=== PATIENT | male | born 1980 ===

== ENCOUNTER 2018-02-25 11:07 | Observation (INO) | payer OTHER ==
[2018-02-25 11:07] VITALS: BMI 24.6
[2018-02-25 12:00] LABS: BASO % 1.1 % (0.0-2.0); EOS # 0.3 K/uL (0.0-0.7); EOS % 8.5 % (0.0-4.0); HEMOGLOBIN 14.6 g/dL (12.0-18.0); LYMPH # 1.9 K/uL (1.0-4.3); LYMPH % 50.4 % (20.0-40.0); MEAN CELL VOLUME 79.7 fL (80.0-94.0); MEAN CORPUSCULAR HGB CONC 33.9 g/dL (33.0-37.0); MEAN PLATELET VOLUME 9.8 fL (7.2-11.7); MONO # 0.4 K/uL (0.0-0.8); MONO % 9.6 % (0.0-10.0); NEUT # 1.1 K/uL (1.8-7.0); NEUT % 30.4 % (50.0-75.0); NRBC % 0.1 % (0.0-2.0); RBC 5.4 Mil/uL (4.40-5.90); RED CELL DISTRIBUTION WIDTH 12.9 % (11.5-14.5); WHITE BLOOD COUNT 3.8 K/uL (4.8-10.8)
[2018-02-25 12:14] LABS: ALB/GLOB RATIO 1.7 (1.0-2.1); ALBUMIN 4.5 g/dL (3.5-5.0); ALT/SGPT 40 U/L (21-72); AST/SGOT 33 U/L (17-59); BLOOD UREA NITROGEN 17 mg/dL (9-20); GFR AFRICAN-AMERICAN > 60; GFR NON-AFRICAN AMERICAN > 60
[2018-02-25 12:23] LABS: B-TYPE NATRIURETIC PEPTIDE 37.7 pg/mL (0-450)
--- NOTE | 2018-02-25 12:55 | RAD ---
Date of service: 02/25/2018 PROCEDURE: CHEST RADIOGRAPH, 1 VIEW HISTORY: chest pain COMPARISON: None available. FINDINGS: LUNGS: Clear. PLEURA: No pneumothorax or pleural fluid seen. CARDIOVASCULAR: Normal. OSSEOUS STRUCTURES: No significant abnormalities. VISUALIZED UPPER ABDOMEN: Normal. OTHER FINDINGS: None. IMPRESSION: No active disease.
--- NOTE | 2018-02-25 14:03 | CP.PCM.CON ---
History of Present Illness - History of Present Illness History of Present Illness: I was asked to evaluate patient by Dr patten. Patient is a 37 year old male with no PMH who presents with chest pain. He describes a sharp central chest pain, associated with exertion. he developed left amr tingling and pain. Review of Systems - Constitutional Constitutional: absent: As Per HPI, Anorexia, Chills, Daytime Sleepiness, Excessive Sweating, Fatigue, Fever, Frequent Falls, Headache, Increased Appetite , Lethargy, Malaise, Night Sweats, Snoring, Sleep Apnea, Weight Gain, Weight Loss, Weakness, Other - EENT Eyes: absent: As Per HPI, Blind Spots, Blurred Vision, Change in Vision, Decreased Night Vision, Diplopia, Discharge, Dry Eye, Exophthalmos, Floaters, Irritation, Itchy Eyes, Loss of Peripheral Vision, Pain, Photophobia, Requires Corrective Lenses, Sees Flashes, Spots in Vision, Tunnel Vision, Other Visual Disturbances, Loss of Vision, Other Ears: absent: As Per HPI, Decreased Hearing, Ear Discharge, Ear Pain, Tinnitus, Abnormal Hearing, Disequilibrium, Dizziness, Other Nose/Mouth/Throat: absent: As Per HPI, Epistaxis, Nasal Congestion, Nasal Discharge, Nasal Obstruction, Nasal Trauma, Nose Pain, Post Nasal Drip, Sinus Pain, Sinus Pressure, Bleeding Gums, Change in Voice, Dental Pain, Dry Mouth, Dysphagia, Halitosis, Hoarsness, Lip Swelling, Mouth Lesions, Mouth Pain, Odynophagia, Sore Throat, Throat Swelling, Tongue Swelling, Facial Pain, Neck Pain, Neck Mass, Other - Cardiovascular Cardiovascular: Chest Pain - Respiratory Respiratory: Dyspnea - Gastrointestinal Gastrointestinal: absent: As Per HPI, Abdominal Pain, Belching, Bloating, Change in Bowel Habits, Change in Stool Character, Coffee Ground Emesis, Constipation, Cramping, Diarrhea, Dyspepsia, Dysphagia, Early Satiety, Excessive Flatus, Fecal Incontinence, Heartburn, Hematemesis, Hematochezia, Loose Stools, Melena, Nausea, Odynophagia, Temesmus, Vomiting, Other - Musculoskeletal Musculoskeletal: absent: As Per HPI, Abnormal Gait, Arthralgias, Atrophy, Back Pain, Deformity, Joint Swelling, Limited Range of Motion, Loss of Height, Muscle Cramps, Muscle Weakness, Myalgias, Neck Pain, Numbness, Radiating Pain into Limb, Stiffness, Tingling, Other - Integumentary Integumentary: absent: As Per HPI, Acne, Alopecia, Bleeding Lesions, Change in Hair, Change in Nails, Change in Pigmentation, Changing Lesions, Dry Skin, Erythema, Furuncle, Hirsutism, Lesions, New Lesions, Non-Healing Lesions, Photosensitivity, Pruritus, Rash, Skin Pain, Skin Ulcer, Sores, Striae, Swelling , Unusual Bruising, Wounds, Jaundice, Other - Neurological Neurological: absent: As Per HPI, Abnormal Gait, Abnormal Hearing, Abnormal Movements, Abnormal Speech, Behavioral Changes, Burning Sensations, Confusion, Convulsions, Disequilibrium, Dizziness, Numbness, Focal Weakness, Frequent Falls , Headaches, Lack of Coordination, Loss of Vision, Memory Loss, Paresthesias, Radicular Pain, Restless Legs, Sensory Deficit, Syncope, Tingling, Tremor, Vertigo, Weakness, Other Visual Disturbances, Other - Psychiatric Psychiatric: absent: As Per HPI, Abnormal Sleep Pattern, Anhedonia, Anxiety, Auditory Hallucinations, Behavioral Changes, Change in Appetite, Change in Libido, Confusion, Depression, Difficulty Concentrating, Hallucinations, Homicidal Ideation, Hopelessness, Irritability, Memory Loss, Mood Swings, Panic Attacks, Paranoia, Suicidal Ideation, Visual Hallucinations, Tactile Hallucinations, Other - Endocrine Endocrine: absent: As Per HPI, Change in Body Appearance, Change in Libido, Cold Intolorance, Deepening of Voice, Excessive Sweating, Fatigue, Flushing, Heat Intolorance, Increase in Ring/Shoe/Hat Size, Palpitations, Polydipsia, Polyphagia, Polyuria, Other - Hematologic/Lymphatic Hematologic: absent: As Per HPI, Easy Bleeding, Easy Bruising, Lymphadenopathy, Other Past Patient History - Infectious Disease Hx of Infectious Diseases: None - Past Social History Smoking Status: Never Smoked - RENAL Hx Kidney Stones: Yes - GENITOURINARY/GYNECOLOGICAL Hx Genitourinary Disorders: Yes Other/Comment: kidney stones - PSYCHIATRIC Hx Substance Use: No - SURGICAL HISTORY Hx Surgeries: No - ANESTHESIA Hx Anesthesia: No Meds Allergies/Adverse Reactions: Allergies Allergy/AdvReac Type Severity Reaction Status Date / Time No Known Allergies Allergy Verified 03/26/17 08:32 Physical Exam - Constitutional Appears: Non-toxic - Head Exam Head Exam: NORMAL INSPECTION - Eye Exam Eye Exam: Normal appearance - ENT Exam ENT Exam: Mucous Membranes Moist - Neck Exam Neck exam: Positive for: Full Rom - Respiratory Exam Respiratory Exam: NORMAL BREATHING PATTERN - Cardiovascular Exam Cardiovascular Exam: REGULAR RHYTHM - GI/Abdominal Exam GI & Abdominal Exam: Normal Bowel Sounds - Rectal Exam Rectal Exam: Deferred - Extremities Exam Extremities exam: Positive for: pedal edema - Back Exam Back exam: NORMAL INSPECTION - Neurological Exam Neurological exam: Alert, Oriented x3 - Psychiatric Exam Psychiatric exam: Normal Affect - Skin Skin Exam: Normal Color Results - Vital Signs Recent Vital Signs: Last Vital Signs Temp 98.1 F 02/25/18 11:22 Pulse 58 L 02/25/18 11:22 Resp 18 02/25/18 11:22 BP 125/71 02/25/18 11:22 Pulse Ox 97 02/25/18 11:22 - Labs Result Diagrams: 02/25/18 11:50 02/25/18 11:50 Labs: Laboratory Results - last 24 hr 02/25/18 02/25/18 11:50 11:50 WBC 3.8 L RBC 5.40 Hgb 14.6 Hct 43.1 MCV 79.7 L MCH 27.0 MCHC 33.9 RDW 12.9 Plt Count 165 MPV 9.8 Neut % (Auto) 30.4 L Lymph % (Auto) 50.4 H [place] % (Auto) 9.6 Eos % (Auto) 8.5 H Baso % (Auto) 1.1 Neut # (Auto) 1.1 L Lymph # (Auto) 1.9 [place] # (Auto) 0.4 Eos # (Auto) 0.3 Baso # (Auto) 0.0 Sodium 142 Potassium 4.2 Chloride 104 Carbon Dioxide 27 Anion Gap 14 BUN 17 Creatinine 1.1 Est GFR ( Amer) > 60 Est GFR (Non-Af Amer) > 60 Random Glucose 101 Calcium 9.0 Total Bilirubin 0.8 AST 33 ALT 40 Alkaline Phosphatase 75 Troponin I < 0.0120 NT-Pro-B Natriuret Pep 37.7 Total Protein 7.1 Albumin 4.5 Globulin 2.6 Albumin/Globulin Ratio 1.7 - EKG Data EKG Interpreted by: Myself EKG shows normal: Sinus rhythm Assessment & Plan (1) Chest pain Assessment and Plan: recommend troponin x 2. If troponin is negative will d/c home today and plan for outpatient stress test. Recommend ASA 81 mg daily. Status: Acute
[2018-02-25 14:20] LABS: BARBITURATES, UR NEGATIVE (NEGATIVE); BENZODIAZEPINES, UR NEGATIVE (NEGATIVE); OPIATES, UR NEGATIVE (NEGATIVE); PHENCYCLIDINE, UR NEGATIVE (NEGATIVE)
--- NOTE | 2018-02-25 14:34 | C.PDOC ---
History Of Present Illness 37 y/o male presents to the ER complaining of chest pain which has been present since yesterday. Patient states that the pain radiated to his left arm and he has associated SOB. Patient reports that he was seen by his PMD earlier today and he was sent to ER for evaluation. Time Seen by Provider: 02/25/18 11:40 Chief Complaint (Nursing): Chest Pain History Per: Patient History/Exam Limitations: no limitations Onset/Duration Of Symptoms: Days Current Symptoms Are (Timing): Still Present Severity: Moderate Past Medical History Reviewed: Historical Data, Nursing Documentation, Vital Signs Vital Signs: Last Vital Signs Temp 98.1 F 02/25/18 11:22 Pulse 58 L 02/25/18 11:22 Resp 18 02/25/18 11:22 BP 125/71 02/25/18 11:22 Pulse Ox 97 02/25/18 14:39 - Medical History PMH: Kidney Stones Surgical History: No Surg Hx Family History: States: No Known Family Hx - Social History Hx Alcohol Use: Yes Hx Substance Use: No Review Of Systems Except As Marked, All Systems Reviewed And Found Negative. Constitutional: Negative for: Fever, Chills Cardiovascular: Positive for: Chest Pain Respiratory: Positive for: Shortness of Breath Physical Exam - Physical Exam Appears: Non-toxic, No Acute Distress Skin: Normal Color, Warm, Dry Head: Atraumatic, Normacephalic Eye(s): bilateral: Normal Inspection Nose: Normal Oral Mucosa: Moist Neck: Supple Chest: Symmetrical Cardiovascular: Rhythm Regular Respiratory: Normal Breath Sounds, No Rales, No Rhonchi, No Wheezing Gastrointestinal/Abdominal: Normal Exam, Soft, No Tenderness, No Guarding, No Rebound Extremity: Normal ROM Neurological/Psych: Oriented x3, Normal Speech ED Course And Treatment - Laboratory Results Result Diagrams: 02/25/18 11:50 02/25/18 11:50 ECG: Interpreted By Me, Viewed By Me ECG Rhythm: Sinus Rhythm Interpretation Of ECG: NSR with normal intervals, normal axises, early repolarization, and no ST/ T wave abnormalities Rate From EC O2 Sat by Pulse Oximetry: 97 (RA) Pulse Ox Interpretation: Normal - Radiology CXR: Interpreted by Me, Viewed By Me CXR Interpretation: Yes: No Acute Disease Medical Decision Making Medical Decision Making: Plan: --Labs --EKG --CXR Updates: Case discussed with hospitalist, Dr. Sachi Loving. Patient will be admitted to Tele Obs. Dr. Charmaine Martinez will be on consult. - Scribe Statement The provider has reviewed the documentation as recorded by the Barney Echavarria Provider Attestation: All medical record entries made by the Scribe were at my direction and personally dictated by me. I have reviewed the chart and agree that the record accurately reflects my personal performance of the history, physical exam, medical decision making, and the department course for this patient. I have also personally directed, reviewed, and agree with the discharge instructions and disposition.
--- NOTE | 2018-02-25 15:35 | CP.PCM.HP ---
History of Present Illness - History of Present Illness History of Present Illness: CC "chest pain" HPI Patient is a 37 year old male with no past medical history of kidney stone who presents for evaluation of chest pain that started last night. He states that he thought it would resolve on its own, however states that his chest pain worsened at 8:30am this morning while he was at a meeting at work. This morning, his chest pain worsened in the middle of his chest associated with cramping in his left arm, palpitations and shortness of breath. He denies any pain in his left arm. He denies nausea, vomiting, diaphoresis. States his pain was a 9/10, initially, however currently is a 2/10. Currently he states he has no palpitations, shortness of breath. Patient is right handed, sleeps on his left side. He denies any aggravating or relieving factors. He was seen by PMD Dr. Gordon who instructed him to come to ED for evaluation. He denies fevers , chills, headache, dizziness, lightheadedness, changes in vision/hearing, cough , abdominal pain, nausea, vomiting, diarrhea, constipation, blood in stools, dysuria, urinary frequency, calf pain. He denies recent illness or sick contacts. He admits to weight gain of 20 lbs in 2 years, however state that it is likely due to his lifestyle and work schedule. States that he feels his appetite has decreased slightly. PMD: Dr. Gordon Code status: full code Health care proxy: Ekta , PMD: kidney stones (10 years) bilateral PSH: none Family hx: Mother has hx of hypertension, hyperlipidemia. Yolanda was diagnosed with cardiac issue at the age of 50 Social hx: denies tobacco use. Admits to drinking ETOH occasionally - once a month drinks 1-2 12oz cans of beer. Denies drug use. States he lives with . no recent stresors at home or work. 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 Present on Admission - Present on Admission Any Indicators Present on Admission: No Review of Systems - Constitutional Constitutional: absent: Chills, Excessive Sweating, Fever, Headache - EENT Eyes: absent: Blurred Vision, Change in Vision, Loss of Vision Ears: absent: Decreased Hearing, Dizziness Nose/Mouth/Throat: absent: Nasal Congestion, Lip Swelling, Sore Throat - Cardiovascular Cardiovascular: Chest Pain, Dyspnea, Lightheadedness, Palpitations. absent: Diaphoresis, Dyspnea on Exertion, Leg Edema - Respiratory Respiratory: Dyspnea. absent: Cough, Snoring, Pain on Inspiration, Chest Congestion - Gastrointestinal Gastrointestinal: absent: Abdominal Pain, Constipation, Diarrhea, Nausea, Vomiting - Genitourinary Genitourinary: Hx Renal/Bladder Calculi. absent: Difficulty Urinating, Dysuria , Flank Pain - Musculoskeletal Musculoskeletal: Back Pain (intermittently over the past year). absent: Abnormal Gait - Integumentary Integumentary: absent: Erythema, Rash, Skin Ulcer, Sores, Jaundice - Neurological Neurological: absent: Abnormal Movements, Dizziness, Numbness, Headaches, Tremor , Weakness - Psychiatric Psychiatric: absent: Anxiety, Depression Past Patient History - Infectious Disease Hx of Infectious Diseases: None - Past Social History Smoking Status: Never Smoked - RENAL Hx Kidney Stones: Yes - GENITOURINARY/GYNECOLOGICAL Hx Genitourinary Disorders: Yes Other/Comment: kidney stones - PSYCHIATRIC Hx Substance Use: No - SURGICAL HISTORY Hx Surgeries: No - ANESTHESIA Hx Anesthesia: No Meds Allergies/Adverse Reactions: Allergies Allergy/AdvReac Type Severity Reaction Status Date / Time No Known Allergies Allergy Verified 03/26/17 08:32 Physical Exam - Constitutional Appears: Well, No Acute Distress - Head Exam Head Exam: ATRAUMATIC Additional comments: 1.5 inch diameter circular mobile nontender nonerythematous mass to occiput - patient states he has noticed it over the past few months - Eye Exam Eye Exam: EOMI, PERRL. absent: Nystagmus, Scleral icterus - ENT Exam ENT Exam: Mucous Membranes Moist - Neck Exam Neck exam: Positive for: Full Rom. Negative for: Lymphadenopathy, Tenderness - Respiratory Exam Respiratory Exam: Clear to Auscultation Bilateral, NORMAL BREATHING PATTERN. absent: Accessory Muscle Use, Chest Wall Tenderness, Decreased Breath Sounds, Rales, Rhonchi, Wheezes, Stridor - Cardiovascular Exam Cardiovascular Exam: Bradycardia, REGULAR RHYTHM, +S1, +S2. absent: Tachycardia , Gallop, JVD, Rubs Additional comments: No reproducible tenderness on anterior chest wall - GI/Abdominal Exam GI & Abdominal Exam: Normal Bowel Sounds, Soft. absent: Distended, Firm, Guarding, Organomegaly, Rebound - Extremities Exam Extremities exam: Positive for: full ROM, normal capillary refill, pedal pulses present. Negative for: calf tenderness, pedal edema Additional comments: good capillary refill of upper and lower extremities - Back Exam Back exam: absent: CVA tenderness (L), CVA tenderness (R), rash noted Additional comments: Cafe au la[employer] lois on right lower back - Neurological Exam Neurological exam: Alert, CN II-XII Intact, Oriented x3 - Psychiatric Exam Psychiatric exam: Normal Affect, Normal Mood - Skin Skin Exam: Dry, Intact, Warm Additional comments: no rash noted. Cafe au lait lois on right lower back. Occipital scalp mass - 1.5 inches in diameter, mobile, nonerythematous, nontender. Results - Vital Signs Recent Vital Signs: Last Vital Signs Temp 98.1 F 02/25/18 11:22 Pulse 58 L 02/25/18 11:22 Resp 18 02/25/18 11:22 BP 125/71 02/25/18 11:22 Pulse Ox 97 02/25/18 14:41 - Labs Result Diagrams: 02/25/18 11:50 02/25/18 11:50 Labs: Laboratory Results - last 24 hr 02/25/18 02/25/18 02/25/18 11:50 11:50 11:50 WBC 3.8 L RBC 5.40 Hgb 14.6 Hct 43.1 MCV 79.7 L MCH 27.0 MCHC 33.9 RDW 12.9 Plt Count 165 MPV 9.8 Neut % (Auto) 30.4 L Lymph % (Auto) 50.4 H [place] % (Auto) 9.6 Eos % (Auto) 8.5 H Baso % (Auto) 1.1 Neut # (Auto) 1.1 L Lymph # (Auto) 1.9 [place] # (Auto) 0.4 Eos # (Auto) 0.3 Baso # (Auto) 0.0 Sodium 142 Potassium 4.2 Chloride 104 Carbon Dioxide 27 Anion Gap 14 BUN 17 Creatinine 1.1 Est GFR ( Amer) > 60 Est GFR (Non-Af Amer) > 60 Random Glucose 101 Calcium 9.0 Total Bilirubin 0.8 AST 33 ALT 40 Alkaline Phosphatase 75 Troponin I < 0.0120 NT-Pro-B Natriuret Pep 37.7 Total Protein 7.1 Albumin 4.5 Globulin 2.6 Albumin/Globulin Ratio 1.7 Urine Opiates Screen Negative Urine Methadone Screen Negative Ur Barbiturates Screen Negative Ur Phencyclidine Scrn Negative Ur Amphetamines Screen Negative U Benzodiazepines Scrn Negative U Oth Cocaine Metabols Negative U Cannabinoids Screen Negative Assessment & Plan (1) Atypical chest pain Status: Acute - Assessment and Plan (Free Text) Plan: Assessment/plan Atypical chest pain Observe Telemetry Troponins x2 EKGs x2 Initial EKG: NSR 50 CXR no active disease VS Temp 98.2 HR 60 BP 121/72 RR 20 Pulse ox 100% on RA Sociology Adj[employer] In[employer] Dr. Martinez consulted, help appreciated * Recommend outpatient follow up for stress test if troponins x3 negative ASA 81mg PO Urine drug screen: negative Occipital scalp mass Present for a few months, nontender Continue to monitor Recommend outpatient follow up with Dr. Gordon Prophylaxis DVT risk score of 0 SCDs No GI prophylaxis Heart healthy diet, 2g Na, low carb Disposition: If troponins x3 negative, may be discharged home for follow up with [employer]ology [employer] Instructor for outpatient stress test. Mason Hunter, TRAVIS Case discussed with Dr. Loving
[2018-02-26 04:59] VITALS: RESP 18
[2018-02-26 07:43] VITALS: BP 133/83; TEMP 97.7; O2SAT 100
--- NOTE | 2018-02-26 08:22 | CP.PCM.PCO ---
Physician Communication Note - Physician Communication Note Physician Communication Note: Please see above
[2018-02-26 08:33] VITALS: PULSE 44
[2018-02-26 09:34] LABS: BASO % 0.9 % (0.0-2.0); EOS # 0.3 K/uL (0.0-0.7); LYMPH # 1.5 K/uL (1.0-4.3); LYMPH % 44.9 % (20.0-40.0); MEAN CELL VOLUME 80.6 fL (80.0-94.0); MEAN CORPUSCULAR HEMOGLOBIN 26.8 pg (27.0-31.0); MEAN CORPUSCULAR HGB CONC 33.2 g/dL (33.0-37.0); MEAN PLATELET VOLUME 9.7 fL (7.2-11.7); MONO # 0.3 K/uL (0.0-0.8); MONO % 9.7 % (0.0-10.0); NEUT # 1.2 K/uL (1.8-7.0); NEUT % 35.5 % (50.0-75.0); NRBC % 0.1 % (0.0-2.0); RBC 5.58 Mil/uL (4.40-5.90); RED CELL DISTRIBUTION WIDTH 13.1 % (11.5-14.5); WHITE BLOOD COUNT 3.3 K/uL (4.8-10.8)
[2018-02-26 09:53] LABS: ALB/GLOB RATIO 1.5 (1.0-2.1); ALBUMIN 4.3 g/dL (3.5-5.0); ALT/SGPT 32 U/L (21-72); AST/SGOT 21 U/L (17-59); BLOOD UREA NITROGEN 20 mg/dL (9-20); CALCIUM 9.1 mg/dl (8.6-10.4); GFR AFRICAN-AMERICAN > 60; GFR NON-AFRICAN AMERICAN > 60
--- NOTE | 2018-02-26 10:16 | CP.PCM.DIS ---
<Barbara Almodovar P - Last Filed: 02/26/18 12:36> Provider - Provider Date of Admission: 02/25/18 13:08 Attending physician: Arron Loving MD Consults: Dr. Martinez, Cardiology. Time Spent in preparation of Discharge (in minutes): 45 Diagnosis - Discharge Diagnosis (1) Atypical chest pain Status: Acute (2) Scalp mass Status: Acute Hospital Course - Lab Results Lab Results: Most Recent Lab Values WBC 3.3 K/uL (4.8-10.8) L 02/26/18 09:17 RBC 5.58 Mil/uL (4.40-5.90) 02/26/18 09:17 Hgb 15.0 g/dL (12.0-18.0) 02/26/18 09:17 Hct 45.0 % (35.0-51.0) 02/26/18 09:17 MCV 80.6 fL (80.0-94.0) 02/26/18 09:17 MCH 26.8 pg (27.0-31.0) L 02/26/18 09:17 MCHC 33.2 g/dL (33.0-37.0) 02/26/18 09:17 RDW 13.1 % (11.5-14.5) 02/26/18 09:17 Plt Count 165 K/uL (130-400) 02/26/18 09:17 MPV 9.7 fL (7.2-11.7) 02/26/18 09:17 Neut % (Auto) 35.5 % (50.0-75.0) L 02/26/18 09:17 Lymph % (Auto) 44.9 % (20.0-40.0) H 02/26/18 09:17 [place] % (Auto) 9.7 % (0.0-10.0) 02/26/18 09:17 Eos % (Auto) 9.0 % (0.0-4.0) H 02/26/18 09:17 Baso % (Auto) 0.9 % (0.0-2.0) 02/26/18 09:17 Neut # (Auto) 1.2 K/uL (1.8-7.0) L 02/26/18 09:17 Lymph # (Auto) 1.5 K/uL (1.0-4.3) 02/26/18 09:17 [place] # (Auto) 0.3 K/uL (0.0-0.8) 02/26/18 09:17 Eos # (Auto) 0.3 K/uL (0.0-0.7) 02/26/18 09:17 Baso # (Auto) 0.0 K/uL (0.0-0.2) 02/26/18 09:17 Sodium 141 mmol/L (132-148) 02/26/18 09:17 Potassium 4.5 mmol/L (3.6-5.2) 02/26/18 09:17 Chloride 103 mmol/L (98-107) 02/26/18 09:17 Carbon Dioxide 27 mmol/L (22-30) 02/26/18 09:17 Anion Gap 16 (10-20) 02/26/18 09:17 BUN 20 mg/dL (9-20) 02/26/18 09:17 Creatinine 1.2 mg/dL (0.8-1.5) 02/26/18 09:17 Est GFR ( Amer) > 60 02/26/18 09:17 Est GFR (Non-Af Amer) > 60 02/26/18 09:17 Random Glucose 97 mg/dL (75-110) 02/26/18 09:17 Calcium 9.1 mg/dl (8.6-10.4) 02/26/18 09:17 Phosphorus 2.7 mg/dL (2.5-4.5) 02/26/18 09:17 Magnesium 1.8 mg/dL (1.6-2.3) 02/26/18 09:17 Total Bilirubin 0.5 mg/dL (0.2-1.3) 02/26/18 09:17 AST 21 U/L (17-59) 02/26/18 09:17 ALT 32 U/L (21-72) 02/26/18 09:17 Alkaline Phosphatase 71 U/L (38-126) 02/26/18 09:17 Troponin I < 0.0120 ng/mL (0.00-0.120) 02/26/18 00:19 NT-Pro-B Natriuret Pep 37.7 pg/mL (0-450) 02/25/18 11:50 Total Protein 7.2 g/dL (6.3-8.3) 02/26/18 09:17 Albumin 4.3 g/dL (3.5-5.0) 02/26/18 09:17 Globulin 2.9 gm/dL (2.2-3.9) 02/26/18 09:17 Albumin/Globulin Ratio 1.5 (1.0-2.1) 02/26/18 09:17 Urine Opiates Screen Negative (NEGATIVE) 02/25/18 11:50 Urine Methadone Screen Negative (NEGATIVE) 02/25/18 11:50 Ur Barbiturates Screen Negative (NEGATIVE) 02/25/18 11:50 Ur Phencyclidine Scrn Negative (NEGATIVE) 02/25/18 11:50 Ur Amphetamines Screen Negative (NEGATIVE) 02/25/18 11:50 U Benzodiazepines Scrn Negative (NEGATIVE) 02/25/18 11:50 U Oth Cocaine Metabols Negative (NEGATIVE) 02/25/18 11:50 U Cannabinoids Screen Negative (NEGATIVE) 02/25/18 11:50 - Hospital Course Hospital Course: On Admission: Hospital Course: HPI Patient is a 37 year old male with past medical history of kidney stone who presents for evaluation of chest pain that started last night. He states that he thought it would resolve on its own, however states that his chest pain worsened at 8:30am this morning while he was at a meeting at work. This morning, his chest pain worsened in the middle of his chest associated with cramping in his left arm, palpitations and shortness of breath. He denies any pain in his left arm. He denies nausea, vomiting, diaphoresis. States his pain was a 9/10, initially, however currently is a 2/10. Currently he states he has no palpitations, shortness of breath. Patient is right handed, sleeps on his left side. He denies any aggravating or relieving factors. He was seen by PMD Dr. Gordon who instructed him to come to ED for evaluation. He denies fevers , chills, headache, dizziness, lightheadedness, changes in vision/hearing, cough , abdominal pain, nausea, vomiting, diarrhea, constipation, blood in stools, dysuria, urinary frequency, calf pain. He denies recent illness or sick contacts. He admits to weight gain of 20 lbs in 2 years, however state that it is likely due to his lifestyle and work schedule. States that he feels his appetite has decreased slightly. Patient was admitted for evaluation of the left sided chest pain with radiation to the left arm. These symptoms have resolved. Troponin x 3 were negative. EKG showed sinus bradycardia at 50bpm otherwise normal. Chest XRay showed no active disease. (see full report) Patient evaluated by Cardiology and outpatient stress test and daily ASA are recommended. Patient is stable for discharge at this time. Patient is discharged to home with prescription for Aspirin 81mg PO daily. This is a brief summary of hospitalization. For full record, please review EMR . Instructions: 1). Schedule appointment with [facility] Dr. Ronald Martinez by calling to schedule outpatient heart stress test. 2). Please take Aspirin 81 mg 1 tablet by mouth with breakfast everyday. 3). Please schedule follow up appointment with your primary care physician in the next 7 days. Your health insurance may require you to obtain referral for [facility] Dr. Ronald Martinez therefore please contact your primary care physician's office for further information. 4). Also through your primary care physician's office, continue to monitor the mass base of the back of your head. 5). You were provided a prescription to return to work on Saturday03/03/18. 6). Please take care and be well. - Date & Time of H&P Date of H&P: 02/26/18 Time of H&P: 08:00 Discharge Exam - Head Exam Head Exam: ATRAUMATIC - Additional Findings Additional findings: General: AAOX3, NAD HEENT: Left lower occipital scalp mass present for number of years (soft, round , roughly 2 cm, freely moveable, non tender), NCA, EOMI, PERRLA, NO cervical/ supraclavicular/submandibular lymphadenopathy, NO pharyngeal erythema/exudate, Nasal Turbinates are nonerythematous/nonedematous, Oral Mucosa is moist Cardio: NS1 and NS2, NO M/R/G Resp: CTA B/L, NO R/R/W GI: BSx4, Soft, NT, NO HSM, NO guarding/rebound tenderness Ext: Pulses are strong and equal, Capillary Refill is 2 seconds, NO edema Neuro: CN II through XII are grossly intact Discharge Plan - Discharge Medications Prescriptions: Aspirin [Ecotrin] 81 mg PO DAILY #30 tabec - Follow Up Plan Condition: GOOD Disposition: HOME/ ROUTINE Instructions: Heart Healthy Diet, Chest Pain, Aspirin Additional Instructions: The following directions need to be provided to patient in Georgian upon discharge: 1). Schedule appointment with [facility] Dr. Ronald Martinez by calling to schedule outpatient heart stress test. 2). Please take Aspirin 81 mg 1 tablet by mouth with breakfast everyday. 3). Please schedule follow up appointment with your primary care physician in the next 7 days. Your health insurance may require you to obtain referral for [facility] Dr. Ronald aMrtinez therefore please contact your primary care physician's office for further information. 4). Also through your primary care physician's office, continue to monitor the mass base of the back of your head. 5). You were provided a prescription to return to work on Saturday03/03/18. 6). Please take care and be well. 1). Programe jorge solitario con el cardilogo Dr. Ronald Martinez llamando al [phone] para programar jorge prueba de estrs cardaco para pacientes ambulatorios. 2). Arjay Aspirin 81 mg 1 tableta por la boca con el desayuno todos los duncan. 3). Programe jorge solitario de seguimiento con campos mdico de atencin primaria en los prximos 7 duncan. Campos seguro de [place] puede requerir que obtenga jorge derivacin para el cardilogo Dr. Ronald Martinez; por lo tanto, pngase en contacto con la oficina de campos mdico de atencin primaria para obtener ms informacin. 4). Tambin a travs de la oficina de campos mdico de atencin primaria, contine monitoreando la base de masa de la parte posterior de campos timothy. 5). Le dieron jorge receta para regresar al trabajo el 03/03/18. 6). Por favor cudate y estate lara. Referrals: Charmaine Martinez MD [Staff Provider] - 1 Week <Arron Loving - Last Filed: 02/26/18 20:10> Provider - Provider Date of Admission: 02/25/18 13:08 Attending physician: Arron Loving MD Time Spent in preparation of Discharge (in minutes): 40 Hospital Course - Lab Results Lab Results: Most Recent Lab Values WBC 3.3 K/uL (4.8-10.8) L 02/26/18 09:17 RBC 5.58 Mil/uL (4.40-5.90) 02/26/18 09:17 Hgb 15.0 g/dL (12.0-18.0) 02/26/18 09:17 Hct 45.0 % (35.0-51.0) 02/26/18 09:17 MCV 80.6 fL (80.0-94.0) 02/26/18 09:17 MCH 26.8 pg (27.0-31.0) L 02/26/18 09:17 MCHC 33.2 g/dL (33.0-37.0) 02/26/18 09:17 RDW 13.1 % (11.5-14.5) 02/26/18 09:17 Plt Count 165 K/uL (130-400) 02/26/18 09:17 MPV 9.7 fL (7.2-11.7) 02/26/18 09:17 Neut % (Auto) 35.5 % (50.0-75.0) L 02/26/18 09:17 Lymph % (Auto) 44.9 % (20.0-40.0) H 02/26/18 09:17 [place] % (Auto) 9.7 % (0.0-10.0) 02/26/18 09:17 Eos % (Auto) 9.0 % (0.0-4.0) H 02/26/18 09:17 Baso % (Auto) 0.9 % (0.0-2.0) 02/26/18 09:17 Neut # (Auto) 1.2 K/uL (1.8-7.0) L 02/26/18 09:17 Lymph # (Auto) 1.5 K/uL (1.0-4.3) 02/26/18 09:17 [place] # (Auto) 0.3 K/uL (0.0-0.8) 02/26/18 09:17 Eos # (Auto) 0.3 K/uL (0.0-0.7) 02/26/18 09:17 Baso # (Auto) 0.0 K/uL (0.0-0.2) 02/26/18 09:17 Sodium 141 mmol/L (132-148) 02/26/18 09:17 Potassium 4.5 mmol/L (3.6-5.2) 02/26/18 09:17 Chloride 103 mmol/L (98-107) 02/26/18 09:17 Carbon Dioxide 27 mmol/L (22-30) 02/26/18 09:17 Anion Gap 16 (10-20) 02/26/18 09:17 BUN 20 mg/dL (9-20) 02/26/18 09:17 Creatinine 1.2 mg/dL (0.8-1.5) 02/26/18 09:17 Est GFR ( Amer) > 60 02/26/18 09:17 Est GFR (Non-Af Amer) > 60 02/26/18 09:17 Random Glucose 97 mg/dL (75-110) 02/26/18 09:17 Calcium 9.1 mg/dl (8.6-10.4) 02/26/18 09:17 Phosphorus 2.7 mg/dL (2.5-4.5) 02/26/18 09:17 Magnesium 1.8 mg/dL (1.6-2.3) 02/26/18 09:17 Total Bilirubin 0.5 mg/dL (0.2-1.3) 02/26/18 09:17 AST 21 U/L (17-59) 02/26/18 09:17 ALT 32 U/L (21-72) 02/26/18 09:17 Alkaline Phosphatase 71 U/L (38-126) 02/26/18 09:17 Troponin I < 0.0120 ng/mL (0.00-0.120) 02/26/18 00:19 NT-Pro-B Natriuret Pep 37.7 pg/mL (0-450) 02/25/18 11:50 Total Protein 7.2 g/dL (6.3-8.3) 02/26/18 09:17 Albumin 4.3 g/dL (3.5-5.0) 02/26/18 09:17 Globulin 2.9 gm/dL (2.2-3.9) 02/26/18 09:17 Albumin/Globulin Ratio 1.5 (1.0-2.1) 02/26/18 09:17 Urine Opiates Screen Negative (NEGATIVE) 02/25/18 11:50 Urine Methadone Screen Negative (NEGATIVE) 02/25/18 11:50 Ur Barbiturates Screen Negative (NEGATIVE) 02/25/18 11:50 Ur Phencyclidine Scrn Negative (NEGATIVE) 02/25/18 11:50 Ur Amphetamines Screen Negative (NEGATIVE) 02/25/18 11:50 U Benzodiazepines Scrn Negative (NEGATIVE) 02/25/18 11:50 U Oth Cocaine Metabols Negative (NEGATIVE) 02/25/18 11:50 U Cannabinoids Screen Negative (NEGATIVE) 02/25/18 11:50 Attending/Attestation - Attestation I have personally seen and examined this patient.: Yes I have fully participated in the care of the patient.: Yes I have reviewed all pertinent clinical information, including history, physical exam and plan: Yes
[2018-02-26] MEDS ORDERED: Pneumococcal 23-Valent Vaccine IM ONE (12:27)
--- NOTE | 2018-02-27 12:16 | CARD ---
APPROVED REPORT Date of service: 02/25/2018 EKG Measurement Heart [id number] CO [id number] <Conclusion> Sinus bradycardia Otherwise normal ECG
--- NOTE | 2018-02-27 12:19 | CARD ---
APPROVED REPORT Date of service: 02/25/2018 EKG Measurement Heart [id number] <Conclusion> Sinus bradycardia Otherwise normal ECG
--- NOTE | 2018-02-27 12:26 | CARD ---
APPROVED REPORT Date of service: 02/25/2018 EKG Measurement Heart [id number] <Conclusion> Sinus bradycardia Early repolarization Otherwise normal ECG
== END 2018-02-26 13:27 | disposition home or self-care (01) ==
LOC: C.ER 11:07 → C.9E 13:08 → C.6T 16:50
PROVIDERS: ADMIT Family Medicine; ATTEND Family Medicine
DX: R07.89 Other chest pain (principal); R22.0 Localized swelling, mass and lump, head; Z87.442 Personal history of urinary calculi
CPT/HCPCS: 36415; 71045; 80053; 80324; 80345; 80346; 80349; 80353; 80358; 80361; 83735; 83880; 83992; 84100; 84484; 85025; 99285; G0378